=== PATIENT | female | born 1970 | race American Indian/Alaskan Native ===

== ENCOUNTER 2017-08-29 09:05 | Emergency (ER) | payer BC ==
[2017-08-29 09:16] VITALS: BP 145/90; PULSE 59; RESP 18; TEMP 97.9; O2SAT 100
[2017-08-29] MEDS ORDERED: Lidocaine 1% Inj (20ml) INFIL ONE (09:51)
[2017-08-29] MEDS ORDERED: Lidocaine 1% Inj (20ml) ONE (09:54)
--- NOTE | 2017-08-29 10:41 | RAD ---
PROCEDURE: Right Hip Radiographs. HISTORY: hip pain COMPARISON: None. FINDINGS: BONES: Normal. No fracture. JOINTS: Normal. SOFT TISSUES: Normal. OTHER FINDINGS: None. IMPRESSION: Normal radiographs of right hip.
--- NOTE | 2017-08-29 10:50 | C.PDOC ---
History Of Present Illness 46 y/o female presents to ED for evaluation of lesion to right dorsal foot and with complaints of right hip buttock pain for 1 month. Patient has not been evaluated previously for symptoms because she does not have PMD. Patient denies trauma, injury, change in sensation or any other complaints at this time. Time Seen by Provider: 08/29/17 09:50 Chief Complaint (Nursing): Lower Extremity Problem/Injury History Per: Patient History/Exam Limitations: no limitations Onset/Duration Of Symptoms: Days Current Symptoms Are (Timing): Still Present Past Medical History Reviewed: Historical Data, Nursing Documentation, Vital Signs Vital Signs: Last Vital Signs Temp 97.9 F 08/29/17 09:13 Pulse 59 L 08/29/17 09:13 Resp 18 08/29/17 09:13 BP 145/90 08/29/17 09:13 Pulse Ox 100 08/30/17 07:36 - Medical History PMH: No Chronic Diseases Surgical History: Appendectomy, Cholecystectomy Family History: States: No Known Family Hx - Social History Hx Alcohol Use: No Hx Substance Use: No - Immunization History Hx Tetanus Toxoid Vaccination: No Hx Influenza Vaccination: No Hx Pneumococcal Vaccination: No Review Of Systems Except As Marked, All Systems Reviewed And Found Negative. Musculoskeletal: Positive for: Other (Hip pain, buttock pain) Skin: Positive for: Lesions (Foot) Physical Exam - Physical Exam Appears: Non-toxic, No Acute Distress Skin: Warm, Dry, No Rash Head: Atraumatic, Normacephalic Oral Mucosa: Moist Neck: Normal ROM, Supple Cardiovascular: Rhythm Regular Respiratory: Normal Breath Sounds, No Rales, No Rhonchi, No Wheezing Back: Other (Tenderness to right lateral hip) Extremity: No Calf Tenderness, Capillary Refill (<2 seconds), No Deformity, Swelling (right foot dorsal wart with surrounding swelling, no cellulitic process ) Pulses: Left Dorsalis Pedis: Normal, Right Dorsalis Pedis: Normal Neurological/Psych: Oriented x3, Normal Motor, Normal Sensation Gait: Steady ED Course And Treatment O2 Sat by Pulse Oximetry: 100 (RA) Pulse Ox Interpretation: Normal - Incision & Drainage Of Abscess Anesthesia: Lidocaine 1% Prep Used: Sterile Water, Betadine Procedure: Incised W/Scalpel Blade#: (bloody drainage only ) Medical Decision Making Medical Decision Making: Assessment: Hip pain, foot wart Progress: Patient tolerated procedure well and Discharged home Disposition - Disposition Referrals: [facility] [Outside] Disposition: HOME/ ROUTINE Disposition Time: 10:49 Condition: STABLE Additional Instructions: follow up with your doctor in 2 days call to make an appointment take medications as prescribed return to ED if symptoms worsens or progress Prescriptions: Naproxen [Naprosyn] 500 mg PO BID PRN #16 tab PRN Reason: Pain, Moderate (4-7) Salicylic Acid [Wart Remover] 1 ml TP BID #50 liquid Instructions: Skin Warts, Hip Pain Forms: General Discharge Instructions, [facility] (Pakistani) - Clinical Impression Clinical Impression: Joint pain, Wart - Scribe Statement The provider has reviewed the documentation as recorded by the Rommleibtaisha Elizabeth All medical record entries made by the Rommelibtaisha were at my direction and personally dictated by me. I have reviewed the chart and agree that the record accurately reflects my personal performance of the history, physical exam, medical decision making, and the department course for this patient. I have also personally directed, reviewed, and agree with the discharge instructions and disposition.
--- NOTE | 2017-08-29 10:53 | C.PDOC ---
Time Seen by Provider: 08/29/17 09:50 Chief Complaint (Nursing): Lower Extremity Problem/Injury Past Medical History Vital Signs: Last Vital Signs Temp 97.9 F 08/29/17 09:13 Pulse 59 L 08/29/17 09:13 Resp 18 08/29/17 09:13 BP 145/90 08/29/17 09:13 Pulse Ox 100 08/29/17 09:13 Surgical History: Appendectomy, Cholecystectomy - Social History Hx Alcohol Use: No Hx Substance Use: No - Immunization History Hx Tetanus Toxoid Vaccination: No Hx Influenza Vaccination: No Hx Pneumococcal Vaccination: No ED Course And Treatment O2 Sat by Pulse Oximetry: 100 Disposition Counseled Patient/Family Regarding: Studies Performed, Diagnosis, Need For Followup, Rx Given - Disposition Referrals: [facility] [Outside] Disposition: HOME/ ROUTINE Disposition Time: 10:49 Condition: STABLE Additional Instructions: follow up with your doctor in 2 days call to make an appointment take medications as prescribed return to ED if symptoms worsens or progress Prescriptions: Naproxen [Naprosyn] 500 mg PO BID PRN #16 tab PRN Reason: Pain, Moderate (4-7) Salicylic Acid [Wart Remover] 1 ml TP BID #50 liquid Instructions: Skin Warts, Hip Pain Forms: [facility] (Slovenian), General Discharge Instructions - Clinical Impression Clinical Impression: Joint pain, Wart
== END 2017-08-29 11:34 | disposition home or self-care (01) ==
LOC: C.ER 09:05
DX: M25.551 Pain in right hip (principal); B07.9 Viral wart, unspecified